=== PATIENT | female | born 2005 ===

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

== ENCOUNTER → 2023-09-16 | Outpatient (CLI) | payer OTHER | LOC: LAB SHORT 10:45 → LAB 10:45 | DX: R30.0 Dysuria (principal) | CPT/HCPCS: 87086 ==

== ENCOUNTER → 2024-11-14 | Outpatient (CLI) | payer OTHER ==
[~2024-11-14] MED LIST: ACET500 PO; ACETAMINOPHEN500 MG PO; Doxycycline Mo100 M1 PO; Flagyl500 MG PO; IBUP600 PO; Ibuprofen600 MG PO; METR500 PO; ONDA4ODT MM; Vibramycin100 MG PO
== END ==
LOC: LAB SHORT 14:56 → LAB 14:56
DX: Z34.93 Encounter for supervision of normal pregnancy, unspecified, third trimester (principal)
CPT/HCPCS: 87081; 87150

== ENCOUNTER 2024-12-13 20:01 | Inpatient (IN) | payer OTHER ==
[~2024-12-13] VITALS: Ht 157.5 cm; Wt 80.0 kg
[2024-12-14] VITALS (36 sets, daily range): BP systolic 90–130; BP diastolic 48–72
[2024-12-14] MEDS ORDERED: Lactated Ringer's 1,000 ML IV SCH ×4 (00:50)
[2024-12-14] MEDS ORDERED: OXYTOCIN/RINGER'S LACTATE 500 ML IV SCH (00:50)
[2024-12-14] MEDS ORDERED: FentaNYL 2mcg/ml-Bup 0.1% Epd 250 ML EPI PRN (00:50)
[2024-12-14] MEDS ORDERED: ePHEDrine Sulfate 50 MG/ML 1ML Injection XX PRN (00:50)
[2024-12-14] MEDS ORDERED: FentaNYL Citrate 50 MCG/ML 2 ML Injection IV PRN (00:55)
[2024-12-14 01:25] LABS: BASOPHILS ABSOLUTE AUTO 0.06 K/mm3 (0.00-0.23); BASOPHILS PERCENT AUTO 0 % (0-2); EOSINOPHILS ABSOLUTE AUTO 0.11 K/mm3 (0.00-0.68); EOSINOPHILS PERCENT AUTO 1 % (0-6); Hematocrit 33.8 % (33.0-51.0); Hemoglobin 11.3 g/dL (11.5-16.0); IMMATURE GRAN ABSOLUTE AUTO 0.17 K/mm3 (0.00-0.10); IMMATURE GRAN PERCENT AUTO 1 % (0-1); LYMPHOCYTES ABSOLUTE AUTO 3.24 K/mm3 (0.84-5.20); LYMPHOCYTES PERCENT AUTO 18 % (21-46); MONOCYTES ABSOLUTE AUTO 1.26 K/mm3 (0.16-1.47); MONOCYTES PERCENT AUTO 7 % (4-13); Mean Corpuscular HGB 27.2 pg (26.0-34.0); Mean Corpuscular HGB Conc 33.4 g/dL (31.5-36.5); Mean Corpuscular Volume 81 fL (80-100); Mean Platelet Volume 9.9 fL (9.1-12.4); NEUTROPHILS ABSOLUTE AUTO 12.77 K/mm3 (1.96-9.15); NEUTROPHILS PERCENT AUTO 73 % (41-73); NRBC ABSOLUTE 0.03 K/mm3 (0.00-0.02); NRBC Auto 0.2 /100 WBC (0.0-0.2); Platelet Count 302 K/mm3 (150-400); RDW Coefficient Variation 13.5 % (11.7-14.2); RDW Standard Deviation 39.8 fL (35.1-46.3); Red Blood Cell Count 4.15 M/mm3 (3.80-5.20); White Blood Cell Count 17.61 K/mm3 (4.00-11.30)
[2024-12-14] MEDS ORDERED: PRENATAL TABLE1 EAC9 PO (01:37)
[2024-12-14] MEDS ORDERED: Calcium Carbonate 500 MG Tab Chew PO PRN (08:45)
[2024-12-14] MEDS ORDERED: Ondansetron HCl 2 MG / ML 2ML Vial IV PRN (08:45)
[2024-12-15] VITALS (31 sets, daily range): BP systolic 105–141; BP diastolic 51–79
[2024-12-15] MEDS ORDERED: Ampicillin Sod 2,000 MG in NS 100 ML IV ONE (02:30)
[2024-12-15] MEDS ORDERED: D5W-LR 1,000 ML IV SCH (05:25)
[2024-12-15] MEDS ORDERED: Ampicillin Sod 1,000 MG in NS 50 ML IV SCH (05:30)
[2024-12-15] MEDS ORDERED: Ibuprofen 400 MG Tab PO SCH ×2 (06:00→16:00)
[2024-12-15] MEDS ORDERED: Azithromycin 500 MG in NS 250 ML IV SCH (09:20)
[2024-12-15] MEDS ORDERED: CeFAZolin Sodium 2,000 MG in NS 100 ML IV SCH (09:20)
[2024-12-15 09:39] LABS: BASOPHILS ABSOLUTE AUTO 0.05 K/mm3 (0.00-0.23); BASOPHILS PERCENT AUTO 0 % (0-2); EOSINOPHILS ABSOLUTE AUTO 0.02 K/mm3 (0.00-0.68); EOSINOPHILS PERCENT AUTO 0 % (0-6); Hematocrit 29.6 % (33.0-51.0); Hemoglobin 9.5 g/dL (11.5-16.0); IMMATURE GRAN ABSOLUTE AUTO 0.28 K/mm3 (0.00-0.10); IMMATURE GRAN PERCENT AUTO 1 % (0-1); LYMPHOCYTES ABSOLUTE AUTO 1.56 K/mm3 (0.84-5.20); LYMPHOCYTES PERCENT AUTO 7 % (21-46); MONOCYTES ABSOLUTE AUTO 1.71 K/mm3 (0.16-1.47); MONOCYTES PERCENT AUTO 7 % (4-13); Mean Corpuscular HGB 27.2 pg (26.0-34.0); Mean Corpuscular HGB Conc 32.1 g/dL (31.5-36.5); Mean Corpuscular Volume 85 fL (80-100); Mean Platelet Volume 9.9 fL (9.1-12.4); NEUTROPHILS ABSOLUTE AUTO 19.51 K/mm3 (1.96-9.15); NEUTROPHILS PERCENT AUTO 84 % (41-73); Platelet Count 224 K/mm3 (150-400); RDW Coefficient Variation 14.2 % (11.7-14.2); RDW Standard Deviation 43.2 fL (35.1-46.3); Red Blood Cell Count 3.49 M/mm3 (3.80-5.20); White Blood Cell Count 23.13 K/mm3 (4.00-11.30)
[2024-12-15] MEDS ORDERED: Citric Acid/Sodium Citrate 30 ML BTL ONE (09:41)
[2024-12-15] MEDS ORDERED: Metoclopramide HCl 5MG / ML 2ML Vial ONE (09:41)
[2024-12-15] MEDS ORDERED: Metoclopramide HCl 5MG / ML 2ML Vial IV ONE (09:45)
[2024-12-15] MEDS ORDERED: Citric Acid/Sodium Citrate 30 ML BTL PO ONE (09:45)
[2024-12-15] MEDS ORDERED: FentaNYL Citrate 50 MCG/ML 2 ML Injection ONE ×2 (10:37→11:41)
[2024-12-15] MEDS ORDERED: Ondansetron HCl 2 MG / ML 2ML Vial ONE (10:40)
[2024-12-15] MEDS ORDERED: Dexamethasone Sod Phos 10 MG/ML 1ML VIAL ONE (10:41)
[2024-12-15] MEDS ORDERED: Oxytocin 10 Unit / ML Vial ONE ×3 (10:41)
[2024-12-15] MEDS ORDERED: Lidocaine HCl 2% 10 ML SDA ONE ×3 (10:58→11:49)
[2024-12-15] MEDS ORDERED: Ketorolac Tromethamine 30mg Vial ONE (11:05)
[2024-12-15 11:28] LABS: PCO2 Cord - Arterial 50.1 mmHg (40-50); PO2 Cord - Arterial 17.6 mmHg (16-20)
[2024-12-15 11:31] LABS: PO2 Cord - Venous 25.9 mmHg (28-32); pH Umbilical Cord - Venous 7.36 (7.26-7.35)
[2024-12-15] MEDS ORDERED: Ondansetron HCl 2 MG / ML 2ML Vial IV PRN ×2 (12:05→12:10)
[2024-12-15] MEDS ORDERED: OxyCODONE 5 mg/Acetamin 325 mg TABLET PO PRN (12:05)
[2024-12-15] MEDS ORDERED: Ketorolac Tromethamine 30mg Vial IV PRN (12:05)
[2024-12-15] MEDS ORDERED: FentaNYL Citrate 50 MCG/ML 2 ML Injection IV PRN ×3 (12:10)
[2024-12-15] MEDS ORDERED: Prochlorperazine Edisylate 10 mg Vial IV PRN (12:10)
[2024-12-15] MEDS ORDERED: HYDROmorphone HCl/Pf 1MG SYR IV PRN (12:10)
[2024-12-15] MEDS ORDERED: OxyCODONE HCL 5 MG TAB PO PRN ×2 (12:35)
[2024-12-15] MEDS ORDERED: Lanolin Cream TOP PRN (12:35)
[2024-12-15] MEDS ORDERED: Simethicone 80 MG Chew PO PRN (12:40)
[2024-12-15] MEDS ORDERED: Acetaminophen 500 MG Tab PO PRN (12:40)
[2024-12-15] MEDS ORDERED: Ketorolac Tromethamine 30mg Vial IV SCH (13:00)
[2024-12-15] MEDS ORDERED: Docusate Sodium 100 MG Cap PO SCH (21:00)
[2024-12-15] MEDS ORDERED: Magnesium Hydroxide Conc 10 ML UDC PO SCH (21:00)
[2024-12-16] MEDS ORDERED: Ketorolac Tromethamine 30mg Vial IV ONE (03:00)
[2024-12-16 03:30] VITALS: BP 109/63
[2024-12-16 07:35] VITALS: BP 118/68
[2024-12-16] MEDS ORDERED: Prenatal Vit/FE Fumarate/FA 1 Tab PO SCH (09:00)
[2024-12-16 09:40] LABS: BASOPHILS ABSOLUTE AUTO 0.04 K/mm3 (0.00-0.23); BASOPHILS PERCENT AUTO 0 % (0-2); EOSINOPHILS ABSOLUTE AUTO 0.03 K/mm3 (0.00-0.68); EOSINOPHILS PERCENT AUTO 0 % (0-6); Hematocrit 24.5 % (33.0-51.0); Hemoglobin 7.8 g/dL (11.5-16.0); IMMATURE GRAN ABSOLUTE AUTO 0.22 K/mm3 (0.00-0.10); IMMATURE GRAN PERCENT AUTO 1 % (0-1); LYMPHOCYTES ABSOLUTE AUTO 2.41 K/mm3 (0.84-5.20); LYMPHOCYTES PERCENT AUTO 10 % (21-46); MONOCYTES ABSOLUTE AUTO 1.51 K/mm3 (0.16-1.47); MONOCYTES PERCENT AUTO 6 % (4-13); Mean Corpuscular HGB 27.1 pg (26.0-34.0); Mean Corpuscular HGB Conc 31.8 g/dL (31.5-36.5); Mean Corpuscular Volume 85 fL (80-100); Mean Platelet Volume 10.1 fL (9.1-12.4); NEUTROPHILS ABSOLUTE AUTO 19.25 K/mm3 (1.96-9.15); NEUTROPHILS PERCENT AUTO 82 % (41-73); Platelet Count 240 K/mm3 (150-400); RDW Coefficient Variation 14.1 % (11.7-14.2); RDW Standard Deviation 43.7 fL (35.1-46.3); Red Blood Cell Count 2.88 M/mm3 (3.80-5.20); White Blood Cell Count 23.46 K/mm3 (4.00-11.30)
[2024-12-16 11:29] VITALS: BP 125/60
[2024-12-16 19:32] VITALS: BP 112/57
[2024-12-17 00:47] VITALS: BP 122/60
[2024-12-17 07:51] VITALS: BP 129/59
[2024-12-17] MEDS ORDERED: IBU800 M1 PO (10:16)
[2024-12-17] MEDS ORDERED: ACET500 PO (10:16)
[2024-12-17] MEDS ORDERED: DOCU100 PO (10:17)
[2024-12-17] MEDS ORDERED: OXYC5 PO (10:17)
[2024-12-17] MEDS ORDERED: Diphth,Pertuss(Acell),Tet Vac 0.5 ML VIAL IM ONE (10:30)
[2024-12-17] MEDS ORDERED: Sod Ferric Gluc Complx/Sucrose 125 MG in NS 100 ML IV ONE (10:35)
[2024-12-17] MEDS ORDERED: FLU VACC TS2024-25(6MOS UP)/PF 45 MCG/0.5 ML SYRINGE IM SCH (10:40)
[2024-12-17 11:50] VITALS: BP 118/60
[2024-12-17 15:15] VITALS: BP 149/85
--- NOTE | 2024-12-17 15:18 | NUR ---
BANDS MATCHED WITH INFANT. PT TO BE DISCHARGED. WILL RETURN TOMORROW FOR WT CHECK ON INFANT AND THURSDAY FOR PPFU. DONOR MILK SENT FOR SUPPLEMENTATION.
[2024-12-18 15:49] LABS: HEPATITIS C AB CIA INTERP Negative (Negative); HEPATITIS C ANTIBODY CIA INDEX 0.07 IV
== END 2024-12-17 15:20 | disposition home or self-care (01) | DRG 807 ==
LOC: OBS 20:01 → BC 20:02 → OBS 20:21 → BC 20:22
PROVIDERS: Advanced Practice Midwife; Family Medicine; ADMIT Registered Nurse Community Health
PROC: 10E0XZZ Delivery of Products of Conception, External Approach (ICD-10-PCS; principal; 2024-12-15 10:30)
PROC: 10H07YZ Insertion of Other Device into Products of Conception, Via Natural or Artificial Opening (ICD-10-PCS; principal; 2024-12-15 10:30)
PROC: 10907ZC Drainage of Amniotic Fluid, Therapeutic from Products of Conception, Via Natural or Artificial Opening (ICD-10-PCS; principal; 2024-12-15 10:30)
DX: O48.0 Post-term pregnancy (principal); Z37.0 Single live birth; Z3A.40 40 weeks gestation of pregnancy; O90.81 Anemia of the puerperium; D50.0 Iron deficiency anemia secondary to blood loss (chronic); O36.63X0 Maternal care for excessive fetal growth, third trimester, not applicable or unspecified; O62.1 Secondary uterine inertia; O33.9 Maternal care for disproportion, unspecified
CPT/HCPCS: 36415; 51702; 82803; 85025; 86803; 86850; 86900; 86901; 86923; 90471; 90715; A9270; J0290; J0456; J0690; J1100; J1885; J2003; J2405; J2590; J2765; J2916; J3010; J7050; J7120; J7121

== ENCOUNTER 2025-05-28 18:24 | Emergency (ER) | payer OTHER ==
[~2025-05-28] VITALS: Ht 157.5 cm; Wt 63.5 kg
[~2025-05-28 18:24] MED LIST changes: +DOCU100 PO; +IBU800 M1 PO; +OXYC5 PO; +PRENATAL TABLE1 EAC9 PO
[2025-05-28 18:54] VITALS: BP 114/88
[2025-05-28] MEDS ORDERED: HYDROcodone 5-APAP 325 TAB PO ONE (19:00)
[2025-05-28] MEDS ORDERED: RX Prepack 6 Tabs Oxycodone 5mg UD ONE (22:20)
== END 2025-05-28 22:40 | disposition home or self-care (01) ==
LOC: ER 18:24
DX: S99.922A Unspecified injury of left foot, initial encounter (principal); W01.0XXA Fall on same level from slipping, tripping and stumbling without subsequent striking against object, initial encounter
CPT/HCPCS: 29515; 73630; 73700; 99283-25; A9270